=== PATIENT | female | born 1945 | race Caucasian/White ===

== ENCOUNTER 2019-03-23 16:47 | Inpatient (IN) ==
[2019-03-23] MEDS ORDERED: SODIUM CHLORIDE 0.9% 1,000 ML IV STA (17:27)
[2019-03-23 18:36] LABS: Basophils % 0.1 % (0.0-0.8); Hematocrit 38.2 VOL% (35.7-47.0); Hemoglobin 13.5 GM/DL (12.0-16.0); Immature Granulocytes % 0.4 %; Immature Granulocytes Absolute 0.06 #; Lymphocytes % 7.2 % (21.3-54.2); Mean Corpuscular HGB Conc 35.3 GM/DL (32-36); Mean Corpuscular Volume 95.3 FL (87-102); Mean Platelet Volume 10.1 FL (9.6-12.0); Monocytes % 8.6 % (1.7-12.7); Neutrophils % 83.7 % (38.7-73.9); Platelet Count 201 T/CUMM (130-400); Red Blood Count 4.01 MC/CUMM (3.8-5.5); Red Cell Distribution Width 12.3 % (9.3-17.3); White Blood Count 14.2 T/CUMM (4-12)
[2019-03-23 19:02] LABS: INR 1.1
[2019-03-23 19:26] LABS: Alanine Aminotransferase 20 U/L (13-56); Albumin 3.9 G/DL (3.4-5.0); Alkaline Phosphatase 49 U/L (45-117); Aspartate Amino Transferase 23 U/L (0-37); Blood Urea Nitrogen 27 MG/DL (7-18); Estimated Glom Filtration Rate 46 ML/MIN; Glucose 120 MG/DL (74-106); Osmolality,Calculated 297.4 MOS/KG (273-304); Total Protein 6.8 G/DL (6.4-8.3); Troponin I 0.023 NG/ML (0.00-0.045)
[2019-03-23] MEDS ORDERED: SODIUM CHLORIDE 0.9% 1,250 ML IV ONE (19:30)
[2019-03-23 19:58] LABS: Apearance,Urine CLEAR (Clear); Bilirubin,Urine Negative (Negative); Blood, Urine Negative (Negative); Glucose,Urine (UA) Negative (Negative); Hyaline Casts,Urine 7 /LPF (0-3); Ketones,Urine 20 mg/dL (Negative); Mucus,Urine Moderate /LPF (Occasional); Nitrite,Urine Negative (Negative); Protein,Urine Negative; RBC,Urine 2 /HPF (0-4); Urine Color Yellow (Yellow); Urine Specific Gravity 1.023 (1.001-1.035); Urine Urobilinogen < 2.0 EU/DL (0.2-1.0); WBC,Urine 3 /HPF (0-6)
[2019-03-23] MEDS ORDERED: VANCOMYCIN INJ 500 MG in SODIUM CHLORIDE 0.9% 100 ML IV SCH (20:00)
[2019-03-23] MEDS ORDERED: MAGNESIUM SULF RIDER 2 GM in PREMIX 1 EACH IV PRN (22:34)
[2019-03-23] MEDS ORDERED: SODIUM CHLORIDE 0.9% 1,000 ML IV SCH (22:34)
[2019-03-23] MEDS ORDERED: ONDANSETRON 4 MG/2 ML VIAL IV PRN (22:34)
[2019-03-23] MEDS ORDERED: ACETAMINOPHEN 325 MG TABLET PO PRN (22:34)
[2019-03-23] MEDS ORDERED: MAGNESIUM SULF RIDER 4 GM in PREMIX 1 EACH IV PRN (22:34)
[2019-03-23] MEDS: ENOXAPARIN 40 MG/0.4 ML SYRINGE SUBCUT SCH (23:02)
[2019-03-23] MEDS: CIPROFLOXACIN INJ 400 MG in PREMIX 1 EACH IV SCH (23:02)
[2019-03-24] MEDS: metroNIDAZOLE INJ 500 MG in PREMIX 1 EACH IV SCH ×3 (00:11→15:59)
[2019-03-24] MEDS ORDERED: QUEtiapine 25 MG TABLET PO ONE (01:41)
[2019-03-24] MEDS: POTASSIUM CHLORIDE RIDER 10 MEQ in PREMIX 1 EACH IV PRN ×4 (02:45→10:07)
[2019-03-24 05:38] LABS: Basophils % 0.2 % (0.0-0.8); Eosinophils # 0.1 10*3/uL (0.0-0.87); Eosinophils % 0.6 % (0.00-10.9); Hematocrit 29.5 VOL% (35.7-47.0); Hemoglobin 10.3 GM/DL (12.0-16.0); Immature Granulocytes % 0.5 %; Immature Granulocytes Absolute 0.07 #; Lymphocytes # 1.6 10*3/uL (1.4-4.0); Lymphocytes % 11.8 % (21.3-54.2); Mean Corpuscular HGB Conc 34.9 GM/DL (32-36); Mean Corpuscular Volume 95.8 FL (87-102); Mean Platelet Volume 10.6 FL (9.6-12.0); Monocytes % 10.8 % (1.7-12.7); Neutrophils % 76.1 % (38.7-73.9); Platelet Count 160 T/CUMM (130-400); Red Blood Count 3.08 MC/CUMM (3.8-5.5); Red Cell Distribution Width 12.4 % (9.3-17.3); White Blood Count 13.2 T/CUMM (4-12)
[2019-03-24 06:09] LABS: Albumin 2.9 G/DL (3.4-5.0); Bilirubin,Total 0.9 MG/DL (0.2-1.0); Calcium 8.2 MG/DL (8.5-10.1); Osmolality,Calculated 299.9 MOS/KG (273-304); Total Protein 5.1 G/DL (6.4-8.3)
[2019-03-24] MEDS: DEXTROSE 5% NACL 0.45% 1,000 ML IV SCH (09:04)
[2019-03-24] MEDS: CIPROFLOXACIN INJ 400 MG in PREMIX 1 EACH IV SCH (12:12)
[2019-03-24] MEDS: RIVASTIGMINE 1.5 MG CAPSULE PO SCH (17:15)
[2019-03-24] MEDS: POTASSIUM CHLORIDE 20 MEQ/15 ML UDCUP PER TUBE PRN ×3 (17:34→22:25)
[2019-03-24] MEDS: TRAVOPROST 0.004% OPH SOLN 2.5 ML BOTTLE BOTH EYES SCH (20:23)
[2019-03-24] MEDS: rOPINIRole 1 MG TABLET PO SCH (20:23)
[2019-03-24] MEDS: QUEtiapine 25 MG TABLET PO SCH (20:23)
[2019-03-24] MEDS: MEGESTROL 40 MG TABLET PO SCH (20:23)
[2019-03-24] MEDS: TIMOLOL 0.25% OPH SOLN 5 ML BOTTLE RIGHT EYE SCH (20:23)
[2019-03-24] MEDS: BRINZOLAMIDE BRIMONIDINE BOTH EYES SCH (20:24)
[2019-03-24] MEDS ORDERED: ZIPRASIDONE 20 MG/1 ML VIAL IM ONE (23:29)
[2019-03-25] MEDS: POTASSIUM CHLORIDE 20 MEQ/15 ML UDCUP PER TUBE PRN (00:25)
[2019-03-25] MEDS: ENOXAPARIN 40 MG/0.4 ML SYRINGE SUBCUT SCH ×2 (00:26→23:37)
[2019-03-25] MEDS: CIPROFLOXACIN INJ 400 MG in PREMIX 1 EACH IV SCH ×2 (00:47→12:33)
[2019-03-25] MEDS: metroNIDAZOLE INJ 500 MG in PREMIX 1 EACH IV SCH ×2 (01:48→06:45)
[2019-03-25] MEDS: DEXTROSE 5% NACL 0.45% 1,000 ML IV SCH ×2 (01:48→18:14)
[2019-03-25 04:53] LABS: Basophils # 0.1 10*3/uL (0.0-0.2); Basophils % 0.5 % (0.0-0.8); Eosinophils # 0.2 10*3/uL (0.0-0.87); Eosinophils % 1.4 % (0.00-10.9); Hematocrit 35.5 VOL% (35.7-47.0); Hemoglobin 12.4 GM/DL (12.0-16.0); Immature Granulocytes % 0.5 %; Immature Granulocytes Absolute 0.05 #; Lymphocytes # 1.3 10*3/uL (1.4-4.0); Lymphocytes % 12.5 % (21.3-54.2); Mean Corpuscular HGB Conc 34.9 GM/DL (32-36); Monocytes % 10.6 % (1.7-12.7); Neutrophils % 74.5 % (38.7-73.9); Platelet Count 181 T/CUMM (130-400); Red Blood Count 3.66 MC/CUMM (3.8-5.5); Red Cell Distribution Width 12.1 % (9.3-17.3); White Blood Count 10.6 T/CUMM (4-12)
[2019-03-25 05:28] LABS: Calcium 8.5 MG/DL (8.5-10.1); Osmolality,Calculated 289.4 MOS/KG (273-304)
[2019-03-25] MEDS: POTASSIUM CHLORIDE RIDER 10 MEQ in PREMIX 1 EACH IV PRN ×5 (05:52→11:34)
[2019-03-25] MEDS: LEVOTHYROXINE 50 MCG TABLET PO SCH (05:52)
[2019-03-25] MEDS: MEMANTINE 10 MG TABLET PO SCH (08:28)
[2019-03-25] MEDS: TIMOLOL 0.25% OPH SOLN 5 ML BOTTLE RIGHT EYE SCH ×3 (08:28→22:30)
[2019-03-25] MEDS: MEGESTROL 40 MG TABLET PO SCH ×3 (08:28→22:29)
[2019-03-25] MEDS: RIVASTIGMINE 1.5 MG CAPSULE PO SCH ×2 (08:28→16:05)
[2019-03-25] MEDS: ASPIRIN EC 81 MG TABLET PO SCH (08:28)
[2019-03-25] MEDS: BRINZOLAMIDE BRIMONIDINE BOTH EYES SCH ×3 (08:29→22:29)
[2019-03-25] MEDS ORDERED: BISACODYL 10 MG SUPP RECTAL ONE (11:25)
[2019-03-25] MEDS ORDERED: TEMAZEPAM 7.5 MG CAPSULE PO PRN (11:27)
[2019-03-25] MEDS: POLYETHYLENE GLYCOL POWDER 17 GM PACK PO SCH (12:50)
[2019-03-25] MEDS: LISINOPRIL 5 MG TABLET PO SCH (12:50)
[2019-03-25] MEDS: DOCUSATE/SENNA 50-8.6 MG TABLET PO SCH ×3 (12:50→22:29)
[2019-03-25] MEDS ORDERED: POTASSIUM CHLORIDE 20 MEQ TABLET PO ONE (15:48)
[2019-03-25] MEDS: rOPINIRole 1 MG TABLET PO SCH ×2 (20:56→22:29)
[2019-03-25] MEDS: SIMVASTATIN 20 MG TABLET PO SCH ×2 (20:56→22:30)
[2019-03-25] MEDS: QUEtiapine 25 MG TABLET PO SCH ×2 (20:57→22:30)
[2019-03-25] MEDS: TRAVOPROST 0.004% OPH SOLN 2.5 ML BOTTLE BOTH EYES SCH ×2 (20:58→22:30)
[2019-03-26] MEDS: DEXTROSE 5% NACL 0.45% 1,000 ML IV SCH ×2 (05:41→22:09)
[2019-03-26] MEDS: LEVOTHYROXINE 50 MCG TABLET PO SCH (05:42)
[2019-03-26 06:06] LABS: Basophils # 0.1 10*3/uL (0.0-0.2); Basophils % 0.6 % (0.0-0.8); Eosinophils # 0.3 10*3/uL (0.0-0.87); Eosinophils % 3.4 % (0.00-10.9); Hemoglobin 13.1 GM/DL (12.0-16.0); Immature Granulocytes % 0.6 %; Immature Granulocytes Absolute 0.05 #; Lymphocytes # 1.2 10*3/uL (1.4-4.0); Lymphocytes % 13.7 % (21.3-54.2); Mean Corpuscular HGB Conc 35.4 GM/DL (32-36); Mean Corpuscular Volume 93.2 FL (87-102); Mean Platelet Volume 9.9 FL (9.6-12.0); Monocytes % 10.6 % (1.7-12.7); Neutrophils % 71.1 % (38.7-73.9); Platelet Count 208 T/CUMM (130-400); Red Blood Count 3.97 MC/CUMM (3.8-5.5); White Blood Count 8.5 T/CUMM (4-12)
[2019-03-26 06:26] LABS: Calcium 8.2 MG/DL (8.5-10.1); Osmolality,Calculated 282.8 MOS/KG (273-304)
[2019-03-26] MEDS: RIVASTIGMINE 1.5 MG CAPSULE PO SCH ×3 (08:19→17:24)
[2019-03-26] MEDS: POLYETHYLENE GLYCOL POWDER 17 GM PACK PO SCH ×2 (08:19→09:16)
[2019-03-26] MEDS: LISINOPRIL 5 MG TABLET PO SCH ×2 (08:20→09:16)
[2019-03-26] MEDS: ASPIRIN EC 81 MG TABLET PO SCH ×2 (08:20→09:16)
[2019-03-26] MEDS: BRINZOLAMIDE BRIMONIDINE BOTH EYES SCH ×2 (08:20→22:04)
[2019-03-26] MEDS: MEMANTINE 10 MG TABLET PO SCH ×2 (08:20→09:16)
[2019-03-26] MEDS: MEGESTROL 40 MG TABLET PO SCH ×3 (08:20→21:39)
[2019-03-26] MEDS: TIMOLOL 0.25% OPH SOLN 5 ML BOTTLE RIGHT EYE SCH ×2 (08:20→22:03)
[2019-03-26] MEDS: DOCUSATE/SENNA 50-8.6 MG TABLET PO SCH ×3 (08:20→21:38)
[2019-03-26] MEDS: POTASSIUM CHLORIDE RIDER 10 MEQ in PREMIX 1 EACH IV PRN ×5 (08:22→13:05)
[2019-03-26] MEDS: rOPINIRole 1 MG TABLET PO SCH (21:39)
[2019-03-26] MEDS: POTASSIUM CHLORIDE 20 MEQ TABLET PO SCH (21:39)
[2019-03-26] MEDS: QUEtiapine 25 MG TABLET PO SCH (21:39)
[2019-03-26] MEDS: SIMVASTATIN 20 MG TABLET PO SCH (21:40)
[2019-03-26] MEDS: TRAVOPROST 0.004% OPH SOLN 2.5 ML BOTTLE BOTH EYES SCH (22:04)
[2019-03-26] MEDS: ENOXAPARIN 40 MG/0.4 ML SYRINGE SUBCUT SCH (22:07)
[2019-03-27 02:50] LABS: ABG Base Excess -6.1 MMOL/L (-2.5-2.5); ABG HCO3 19.5 MMOL/L (20-26); ABG Oxygen Saturation 99.9 % (95-100); ABG PH 7.312 (7.35-7.45); ABG TCO2 17.2 MMOL/L (23-27); Allen Test Positive
[2019-03-27 04:14] LABS: Albumin 3.3 G/DL (3.4-5.0); Calcium 8.8 MG/DL (8.5-10.1); Osmolality,Calculated 285.8 MOS/KG (273-304); Total Protein 6.4 G/DL (6.4-8.3)
[2019-03-27] MEDS ORDERED: ALBUTEROL/IPRATROPIUM 3 ML NEB RESP TX PRN (04:21)
[2019-03-27] MEDS: DEXTROSE 5% NACL 0.45% 1,000 ML IV SCH (07:49)
[2019-03-27] MEDS: LEVOTHYROXINE 50 MCG TABLET PO SCH (07:51)
[2019-03-27] MEDS: BRINZOLAMIDE BRIMONIDINE BOTH EYES SCH ×2 (09:46→22:10)
[2019-03-27] MEDS: TIMOLOL 0.25% OPH SOLN 5 ML BOTTLE RIGHT EYE SCH ×2 (09:49→22:11)
[2019-03-27] MEDS: RIVASTIGMINE 1.5 MG CAPSULE PO SCH ×2 (10:00→17:57)
[2019-03-27] MEDS: MEGESTROL 40 MG TABLET PO SCH (10:00)
[2019-03-27] MEDS: POLYETHYLENE GLYCOL POWDER 17 GM PACK PO SCH (10:00)
[2019-03-27] MEDS: POTASSIUM CHLORIDE 20 MEQ TABLET PO SCH (10:00)
[2019-03-27] MEDS: ASPIRIN EC 81 MG TABLET PO SCH (10:00)
[2019-03-27] MEDS: MEMANTINE 10 MG TABLET PO SCH (10:01)
[2019-03-27] MEDS: LISINOPRIL 10 MG TABLET PO SCH (10:01)
[2019-03-27] MEDS: DOCUSATE/SENNA 50-8.6 MG TABLET PO SCH (10:01)
[2019-03-27] MEDS: methylPREDNISolone SOD SUC 40 MG/1 ML VIAL IV SCH (12:44)
[2019-03-27] MEDS: ENOXAPARIN 40 MG/0.4 ML SYRINGE SUBCUT SCH (22:10)
[2019-03-27] MEDS: TRAVOPROST 0.004% OPH SOLN 2.5 ML BOTTLE BOTH EYES SCH (22:11)
[2019-03-28] MEDS: MEGESTROL 40 MG TABLET PO SCH ×2 (01:34→09:34)
[2019-03-28] MEDS: POTASSIUM CHLORIDE 20 MEQ TABLET PO SCH ×2 (01:34→09:34)
[2019-03-28] MEDS: methylPREDNISolone SOD SUC 40 MG/1 ML VIAL IV SCH ×2 (01:36→11:50)
[2019-03-28] MEDS: DOCUSATE/SENNA 50-8.6 MG TABLET PO SCH ×2 (04:35→09:35)
[2019-03-28] MEDS: rOPINIRole 1 MG TABLET PO SCH (04:35)
[2019-03-28] MEDS: SIMVASTATIN 20 MG TABLET PO SCH (04:35)
[2019-03-28] MEDS: QUEtiapine 25 MG TABLET PO SCH (04:35)
[2019-03-28 05:36] LABS: Calcium 9.2 MG/DL (8.5-10.1); Osmolality,Calculated 291.7 MOS/KG (273-304)
[2019-03-28] MEDS: LEVOTHYROXINE 50 MCG TABLET PO SCH (05:38)
[2019-03-28 05:46] LABS: Basophils % 0.1 % (0.0-0.8); Eosinophils % 0.1 % (0.00-10.9); Hematocrit 38.4 VOL% (35.7-47.0); Hemoglobin 13.6 GM/DL (12.0-16.0); Immature Granulocytes % 0.4 %; Immature Granulocytes Absolute 0.06 #; Lymphocytes # 1.2 10*3/uL (1.4-4.0); Lymphocytes % 8.5 % (21.3-54.2); Mean Corpuscular HGB Conc 35.4 GM/DL (32-36); Mean Platelet Volume 9.7 FL (9.6-12.0); Monocytes % 3.1 % (1.7-12.7); Neutrophils % 87.8 % (38.7-73.9); Platelet Count 271 T/CUMM (130-400); Red Blood Count 4.04 MC/CUMM (3.8-5.5); White Blood Count 13.7 T/CUMM (4-12)
[2019-03-28] MEDS: TIMOLOL 0.25% OPH SOLN 5 ML BOTTLE RIGHT EYE SCH ×2 (09:02→22:41)
[2019-03-28] MEDS: BRINZOLAMIDE BRIMONIDINE BOTH EYES SCH ×2 (09:03→22:41)
[2019-03-28] MEDS: POLYETHYLENE GLYCOL POWDER 17 GM PACK PO SCH (09:34)
[2019-03-28] MEDS: ASPIRIN EC 81 MG TABLET PO SCH (09:34)
[2019-03-28] MEDS: RIVASTIGMINE 1.5 MG CAPSULE PO SCH (09:34)
[2019-03-28] MEDS: LISINOPRIL 10 MG TABLET PO SCH (09:35)
[2019-03-28] MEDS: MEMANTINE 10 MG TABLET PO SCH (09:35)
[2019-03-28] MEDS ORDERED: TUBERCULIN SKIN TEST 0.1 ML SYRINGE INTRADERM ONE (10:47)
[2019-03-28] MEDS ORDERED: ZINC OXIDE PASTE 113 GM TUBE TOP PRN (11:08)
[2019-03-28] MEDS ORDERED: MORPHINE 4 MG/1 ML VIAL IV PRN (13:41)
[2019-03-28] MEDS ORDERED: LORazepam 2 MG/1 ML VIAL IV PRN (13:41)
[2019-03-28] MEDS ORDERED: GLYCOPYRROLATE 0.4 MG/2 ML VIAL IV PRN (13:42)
[2019-03-28] MEDS ORDERED: SCOPOLAMINE 1.5 MG PATCH TRANSDERM SCH (14:00)
[2019-03-28] MEDS: TRAVOPROST 0.004% OPH SOLN 2.5 ML BOTTLE BOTH EYES SCH (22:41)
[2019-03-29] MEDS: DEXTROSE 5% NACL 0.45% 1,000 ML IV SCH ×2 (03:13→09:07)
[2019-03-29 08:16] VITALS: BP 148/66
[2019-03-29] MEDS: TIMOLOL 0.25% OPH SOLN 5 ML BOTTLE RIGHT EYE SCH (09:04)
[2019-03-29] MEDS: BRINZOLAMIDE BRIMONIDINE BOTH EYES SCH (09:05)
== END 2019-03-29 11:49 | disposition hospice, inpatient (51) | DRG 641 ==
LOC: N.ED 16:47 → SUATTDRO 20:34 → N.EDINP 20:34 → N.5E 20:49
PROVIDERS: ADMIT Internal Medicine; ATTEND Hospitalist